=== PATIENT | male | born 1950 | race Caucasian/White ===

== ENCOUNTER 2018-07-01 11:51 | Observation (INO) | payer OTHER ==
[2018-06-29 14:11] LABS: BASOPHILS # (AUTO) 0.03 x10^3/uL (0-0.1); BASOPHILS % (AUTO) 1 % (0-1); EOSINOPHILS # (AUTO) 0.15 x10^3/uL (0-0.4); EOSINOPHILS % (AUTO) 2 % (1-7); LYMPHOCYTES # (AUTO) 2.09 x10^3/uL (1-3.4); LYMPHOCYTES % (AUTO) 30 % (22-44); MD NO; MEAN CORPUSCULAR HEMOGLOBIN 29.9 pg (27.5-34.5); MEAN CORPUSCULAR HGB CONC 33.5 g/dL (33.2-36.2); MEAN CORPUSCULAR VOLUME 89.2 fL (81-97); MONOCYTES # (AUTO) 0.48 x10^3/uL (0.2-0.8); MONOCYTES % (AUTO) 7 % (2-9); NEUTROPHILS # (AUTO) 4.14 x10^3/uL (1.8-6.8); NEUTROPHILS % (AUTO) 60 % (42-75); PLATELET COUNT 223 x10^3/uL (130-400); RED BLOOD COUNT 5.85 x10^6/uL (4.38-5.82); RED CELL DISTRIBUTION WIDTH 13.8 % (9.4-14.8)
[2018-06-29 14:18] LABS: ANION GAP 5 mmol/L (5-15); CALCIUM 9.7 mg/dL (8.5-10.1); CHLORIDE 103 mmol/L (98-107); CREATININE 0.87 mg/dL (0.7-1.3)
[~2018-07-01] VITALS: Ht 175.3 cm; Wt 97.1 kg
[~2018-07-01 11:51] MED LIST: ASPI-496 PO; CLOP75TA52 PO; CYCL-259 PO; DICL100G19 TD; DICL100G19 TP; DILT120T3 PO; EPIN0.3P3 IM; ESOM40CA PO; EZET1TAB35 PO; FENO145T32 PO; HYDR28.3 TP; LISI5TAB7 PO; NAPR-685 PO; NAPR500T8 PO; NITR0.4T28 SL; NITROQUICK PO; OXYC1TAB7 PO; SITA1TAB PO; TRIA1TAB3 PO; celebrex PO; hydrocortisone cream TD
[2018-07-01] MEDS ORDERED: SODIUM CHLORIDE 0.9% 1,000 ML IV SCH (15:35)
[2018-07-01 15:48] VITALS: BP 155/85
[2018-07-01] MEDS ORDERED: CLOPIDOGREL 75 MG TABLET PO ONE (16:00)
[2018-07-01] MEDS ORDERED: MIDAZOLAM 1 MG/ML, 5ML ONE (16:16)
[2018-07-01] MEDS ORDERED: LIDOCAINE-MPF 1%, 5ML ONE (16:16)
[2018-07-01] MEDS ORDERED: FENTANYL PF 250 MCG/5ML ONE (16:16)
[2018-07-01] MEDS ORDERED: HEPARIN 1,000 UNITS/ML, 10ML ONE (16:16)
[2018-07-01] MEDS ORDERED: VERAPAMIL 2.5 MG/ML, 2ML ONE (16:16)
[2018-07-01] MEDS ORDERED: BIVALIRUDIN 250 MG ONE (16:52)
[2018-07-01] MEDS ORDERED: CLOPIDOGREL 300 MG TABLET ONE (17:02)
[2018-07-01] MEDS: SODIUM CHLORIDE 0.9% 1,000 ML IV SCH (17:40)
[2018-07-01] MEDS ORDERED: BIVALIRUDIN 250 MG in SODIUM CHLORIDE 0.9% 50 ML IV SCH (17:40)
[2018-07-01 17:46] VITALS: BP 154/77
[2018-07-01] MEDS ORDERED: ONDANSETRON 2MG/ML, 2ML IVPush PRN (18:00)
[2018-07-01] MEDS ORDERED: ACETAMINOPHEN 325 MG TABLET PO PRN (18:00)
[2018-07-01] MEDS ORDERED: OXYcodone/APAP 5/325MG TABLET PO PRN (18:00)
[2018-07-01] MEDS ORDERED: NITROGLYCERIN 0.4 MG BOTTLE (25 TABS) SL PRN (18:00)
[2018-07-01] MEDS ORDERED: HYDROCORTISONE TD PRN (18:00)
[2018-07-01] MEDS ORDERED: ZOLPIDEM 5MG TABLET PO PRN (18:00)
[2018-07-01] MEDS ORDERED: CYCLOBENZAPRINE 10 MG TABLET PO SCH (18:00)
[2018-07-01] MEDS ORDERED: HYDROCORTISONE CREAM MC SCH (18:30)
[2018-07-01] MEDS: NAPROXEN 500 MG TABLET PO SCH (20:46)
[2018-07-01] MEDS: TEMPLATE NON-FORMULARY MED. (Sitagliptin Phos/Metformin Hcl** (Janumet 50-500 Mg Tablet**) PO SCH (20:46)
[2018-07-01] MEDS: TEMPLATE NON-FORMULARY MED. (Diclofenac Sodium (Voltaren) 1 APPLIC) TD SCH (20:46)
[2018-07-01] MEDS ORDERED: EZETIMIBE 10 MG TABLET PO SCH (21:00)
[2018-07-01] MEDS ORDERED: SIMVASTATIN 40 MG TABLET PO SCH (21:00)
[2018-07-01] MEDS ORDERED: FENOFIBRATE 145 MG TABLET PO SCH (21:30)
[2018-07-01 21:36] VITALS: BP 127/71
[2018-07-01] MEDS: LISINOPRIL 5 MG TABLET PO SCH (21:39)
[2018-07-01] MEDS: PANTOPROZOLE 40MG TABLET PO SCH (21:39)
[2018-07-02 01:19] VITALS: BP 110/66
[2018-07-02] MEDS: SODIUM CHLORIDE 0.9% 1,000 ML IV SCH ×2 (01:29→07:48)
[2018-07-02] MEDS: TEMPLATE NON-FORMULARY MED. (Diclofenac Sodium (Voltaren) 1 APPLIC) TD SCH ×2 (05:02→07:56)
[2018-07-02 05:19] LABS: ANION GAP 5 mmol/L (5-15); CALCIUM 8.9 mg/dL (8.5-10.1); CHLORIDE 105 mmol/L (98-107); CREATININE 0.86 mg/dL (0.7-1.3)
[2018-07-02] MEDS: TEMPLATE NON-FORMULARY MED. (Sitagliptin Phos/Metformin Hcl** (Janumet 50-500 Mg Tablet**) PO SCH (07:48)
[2018-07-02] MEDS: PANTOPROZOLE 40MG TABLET PO SCH (07:53)
[2018-07-02] MEDS: NAPROXEN 500 MG TABLET PO SCH (07:53)
[2018-07-02] MEDS: LISINOPRIL 5 MG TABLET PO SCH (07:53)
[2018-07-02 08:30] VITALS: BP 133/73
[2018-07-02] MEDS ORDERED: FENOFIBRATE 145 MG TABLET PO SCH (09:00)
[2018-07-02] MEDS ORDERED: DILTIAZEM 120 MG CAP.ER.24H PO SCH (09:00)
[2018-07-02] MEDS ORDERED: ASPIRIN 81 MG TABLET EC PO SCH (09:00)
[2018-07-02] MEDS ORDERED: TRIAMTERENE/HCTZ 75/50MG TABLET PO SCH (09:00)
[2018-07-02] MEDS ORDERED: CLOPIDOGREL 75 MG TABLET PO SCH (09:00)
[2018-07-02] MEDS ORDERED: TEMPLATE NON-FORMULARY MED. (Ezetimibe/Simvastatin** (Vytorin 10-40 Mg Tablet**) 1 TAB) PO SCH (09:00)
== END 2018-07-02 10:00 | disposition home or self-care (01) ==
LOC: CACL 11:51 → 5SO 17:40 → CACL 17:40 → 5SO 17:42 → DCLOUNGE 07-02 09:58
PROVIDERS: ADMIT Internal Medicine Cardiovascular Disease; ATTEND Internal Medicine Cardiovascular Disease
DX: I25.110 Atherosclerotic heart disease of native coronary artery with unstable angina pectoris (principal); I25.82 Chronic total occlusion of coronary artery
CPT/HCPCS: 36415; 80048; 82962; 85018; 85025; 93005; 93454; 99156; 99157; C1725; C1760; C1769; C1874; C1887; C1894; C9600; G0378; J0583; J1644; Q9967; J2250; J3010

== ENCOUNTER → 2019-09-21 | Outpatient (CLI) | payer OTHER ==
[~2019-09-21] MED LIST changes: -HYDR28.3 TP; +[UNRECOGNIZED DRUG - CODE] TP
[2019-09-21 12:31] LABS: BASOPHILS # (AUTO) 0.03 x10^3/uL (0-0.1); BASOPHILS % (AUTO) 1 % (0-1); EOSINOPHILS # (AUTO) 0.34 x10^3/uL (0-0.4); EOSINOPHILS % (AUTO) 6 % (1-7); LYMPHOCYTES # (AUTO) 1.81 x10^3/uL (1-3.4); LYMPHOCYTES % (AUTO) 29 % (22-44); MD NO; MEAN CORPUSCULAR HEMOGLOBIN 29.1 pg (27.5-34.5); MEAN CORPUSCULAR HGB CONC 33.3 g/dL (33.2-36.2); MEAN CORPUSCULAR VOLUME 87.6 fL (81-97); MEAN PLATELET VOLUME 10.5 fL (7.4-10.4); MONOCYTES # (AUTO) 0.37 x10^3/uL (0.2-0.8); MONOCYTES % (AUTO) 6 % (2-9); NEUTROPHILS # (AUTO) 3.59 x10^3/uL (1.8-6.8); NEUTROPHILS % (AUTO) 59 % (42-75); PLATELET COUNT 244 x10^3/uL (130-400); RED BLOOD COUNT 4.95 x10^6/uL (4.38-5.82); RED CELL DISTRIBUTION WIDTH 13.2 % (9.4-14.8)
[2019-09-21 13:14] LABS: T4 (THYROXINE) 7.7 mcg/dL (4.5-12.1)
[2019-09-21 13:23] LABS: CHOL/HDL RATIO 5.4; LDL/HDL RATIO 2.3 (0.5-3.0)
== END | disposition home or self-care (01) ==
LOC: CFH 08:06
PROVIDERS: ATTEND Internal Medicine Cardiovascular Disease
DX: I10 Essential (primary) hypertension (principal); R06.00 Dyspnea, unspecified
CPT/HCPCS: 36415; 80061; 83036; 84436; 84481; 85025

== ENCOUNTER → 2019-09-26 | Outpatient (CLI) | payer OTHER | END | disposition home or self-care (01) | LOC: CVU 11:04 | PROVIDERS: ATTEND Internal Medicine Cardiovascular Disease | DX: I08.3 Combined rheumatic disorders of mitral, aortic and tricuspid valves (principal); I25.10 Atherosclerotic heart disease of native coronary artery without angina pectoris; I10 Essential (primary) hypertension; E11.9 Type 2 diabetes mellitus without complications | CPT/HCPCS: 93306 ==

== ENCOUNTER → 2020-03-25 | Outpatient (CLI) | payer OTHER ==
[2020-03-25 12:03] LABS: BASOPHILS % (AUTO) 1 % (0-1); EOSINOPHILS % (AUTO) 4 % (1-7); LYMPHOCYTES % (AUTO) 27 % (22-44); MEAN CORPUSCULAR HEMOGLOBIN 29.4 pg (27.5-34.5); MEAN CORPUSCULAR HGB CONC 33.7 g/dL (33.2-36.2); MEAN PLATELET VOLUME 9.8 fL (7.4-10.4); MONOCYTES % (AUTO) 7 % (2-9); NEUTROPHILS % (AUTO) 61 % (42-75); PLATELET COUNT 226 x10^3/uL (130-400); RED BLOOD COUNT 5.01 x10^6/uL (4.38-5.82); RED CELL DISTRIBUTION WIDTH 13.3 % (9.4-14.8)
[2020-03-25 12:06] LABS: MD NO
[2020-03-25 12:08] LABS: ALBUMIN 4.1 g/dL (3.4-5.0); ANION GAP 9 mmol/L (5-15); CHLORIDE 102 mmol/L (98-107)
[2020-03-25 12:18] LABS: ALANINE AMINOTRANSFERASE 21 U/L (12-78); ALKALINE PHOSPHATASE 69 U/L (45-117); BILIRUBIN,TOTAL 0.4 mg/dL (0.2-1.0); CALCIUM 9.6 mg/dL (8.5-10.1); CHOL/HDL RATIO 7.2; CHOLESTEROL, TOTAL 258 mg/dL (140-239); CREATININE 2.04 mg/dL (0.7-1.3); HDL CHOL % 14 % (26-37); HDL CHOLESTEROL (DIRECT) 36 mg/dL (40-60); LDL CHOLESTEROL,CALCULATED 149 mg/dL (54-169); LDL/HDL RATIO 4.1 (0.5-3.0); T4 (THYROXINE) 9.4 mcg/dL (4.5-12.1); TRIGLYCERIDES 367 mg/dL (50-200); VLDL CHOLESTEROL 73 mg/dL (0-25)
== END | disposition home or self-care (01) ==
LOC: LAB 11:30
PROVIDERS: ATTEND Internal Medicine Cardiovascular Disease
DX: I10 Essential (primary) hypertension (principal); E11.9 Type 2 diabetes mellitus without complications; I25.10 Atherosclerotic heart disease of native coronary artery without angina pectoris
CPT/HCPCS: 36415; 80053; 80061; 83036; 84436; 84481; 85025